=== PATIENT | female | born 1955 | race Caucasian/White ===

== ENCOUNTER → 2024-11-12 | Outpatient (CLI) | payer OTHER | LOC: CT 14:21 | PROVIDERS: ATTEND Internal Medicine Gastroenterology | DX: N20.0 Calculus of kidney (principal); K57.10 Diverticulosis of small intestine without perforation or abscess without bleeding; I70.0 Atherosclerosis of aorta; N81.10 Cystocele, unspecified; R10.12 Left upper quadrant pain; M47.816 Spondylosis without myelopathy or radiculopathy, lumbar region ==